=== PATIENT | female | born 1995 | race Caucasian/White ===

== ENCOUNTER 2020-01-20 12:26 | Inpatient (IN) | payer BC ==
[2020-01-20] MEDS ORDERED: diphenhydrAMINE 50 MG/ML SDV IVPUSH PRN (13:29)
[2020-01-20] MEDS ORDERED: ePHEDrine 50 MG/ML SDV IVPUSH PRN (13:29)
[2020-01-20] MEDS ORDERED: Bupivacaine/fentaNYL/NS 100 ML Bag EPIDUR PRN (13:29)
[2020-01-20] MEDS ORDERED: fentaNYL 100 MCG/2 ML SDV EPIDUR PRN (13:29)
[2020-01-20] MEDS ORDERED: Sodium Chloride 0.9% 10 ML Syringe FLUSH PRN (13:53)
[2020-01-20] MEDS ORDERED: Oxytocin/Lactated Ringers 10 UNIT/1,000 ML BAG IV SCH (14:00)
[2020-01-20] MEDS: Lactated Ringers 1,000 ML IV SCH (14:14)
[2020-01-20] MEDS ORDERED: Oxytocin/Lactated Ringers 20 UNIT/1,000 ML BAG IV SCH ×2 (16:45→22:00)
[2020-01-21] MEDS ORDERED: Metoclopramide 10 MG/2 ML SDV ONE (07:18)
[2020-01-21] MEDS ORDERED: Citric Acid/Sodium Citrate Solution 30 ML Cup ONE (07:18)
--- NOTE | 2020-01-21 07:26 | PCM.SN.2 ---
- Free Text/Narrative Note: Isidra is presently on Pitocin at 24 mU/m. She has had an adequate contraction pattern for approximately the last 8-10 hours. With this patient is not made any significant progress as far as her cervix is concerned. heart tones are reassuring. Cervix presently is 1 cm, 80% effaced, soft, posterior, presenting part is at a -3 station and is cephalic discussion is held with patient as to options of continued Pitocin therapy. She is aware that Cytotec is not an option and is aware that mechanical cervical dilation with Rascon bulb is not possible at this time yet. She is also given the option of repeat section. Procedure, risks, benefits, follow-up are discussed in detail patient on several occasions during the course of and again at this time. She is aware of this and is already signed a consent. She has opted for the section at this point. She'll be prepped for section and this will be undertaken. Pitocin will be discontinued. Routine preoperative preparations will be undertaken such as Reglan therapy and Bicitra therapy. Ancef 2 g IV preop. Test dose will be given prior to full dose. SCDs will be in place. Labs have already been done.
[2020-01-21] MEDS ORDERED: Metoclopramide 10 MG/2 ML SDV IVPUSH ONE (07:33)
[2020-01-21] MEDS ORDERED: Citric Acid/Sodium Citrate Solution 30 ML Cup PO ONE (07:33)
[2020-01-21] MEDS ORDERED: ceFAZolin 2 GM in Premix Bag 1 BAG IV ONE (07:33)
[2020-01-21] MEDS: Lactated Ringers 1,000 ML IV SCH (07:43)
--- NOTE | 2020-01-21 08:15 | PCM.PREANE ---
Preanesthetic Assessment - Procedure Proposed Procedure: Section - Anesthesia/Transfusion/Family Hx Anesthesia History: Prior Anesthesia Without Reaction Family History of Anesthesia Reaction: No Transfusion History: No Prior Transfusion(s) - Review of Systems General: No Symptoms Pulmonary: No Symptoms Cardiovascular: Other (Gestational hypertension) Gastrointestinal: No Symptoms Neurological: No Symptoms Other: Reports: None - Physical Assessment NPO Status Date: 01/20/20 NPO Status Time: 23:00 Vital Signs: Last Vital Signs Temp 37.2 C 01/20/20 12:45 Pulse 116 H 01/20/20 12:45 Resp BP 132/89 01/20/20 12:45 Pulse Ox Height: 1.63 m Weight: 72.121 kg ASA Class: 2 Mental Status: Alert & Oriented x3 Airway Class: Mallampati = 1 Dentition: Reports: Normal Dentition Thyro-Mental Finger Breadths: 3 Mouth Opening Finger Breadths: 3 ROM/Head Extension: Full Lungs: Clear to Auscultation, Normal Respiratory Effort Cardiovascular: Regular Rate, Regular Rhythm - Lab Values: Laboratory Last Values Blood Type O POSITIVE 01/20/20 11:40 Gel Antibody Screen Negative 01/20/20 11:40 - Allergies Allergies/Adverse Reactions: Allergies Allergy/AdvReac Type Severity Reaction Status Date / Time amoxicillin Allergy Hives Verified 01/20/20 12:46 - Anesthesia Plan Pre-Op Medication Ordered: Antacids - Acknowledgements Anesthesia Type Planned: Spinal Pt an Appropriate Candidate for the Planned Anesthesia: Yes Alternatives and Risks of Anesthesia Discussed w Pt/Guardian: Yes Pt/Guardian Understands and Agrees with Anesthesia Plan: Yes PreAnesthesia Questionnaire - Past Health History Medical/Surgical History: Denies Medical/Surgical History - SUBSTANCE USE Smoking Status *Q: Never Smoker Second Hand Smoke Exposure: No Recreational Drug Use History: No - CURRENT (IN HOUSE) MEDS Current Meds: Current Medications Diphenhydramine HCl (Benadryl) 25 mg IVPUSH Q6H PRN PRN Reason: Itching Ephedrine Sulfate (Ephedrine Sulfate) 5 mg IVPUSH ASDIRECTED PRN PRN Reason: HYPOTENTSION Fentanyl (Sublimaze) 100 mcg EPIDUR Q3H PRN PRN Reason: Pain Fentanyl/Bupivacaine HCl (Fentanyl/Bupivacaine/Ns 2 Mcg-0.125% 100 Ml) 100 ml EPIDUR CONTINUOUS PRN PRN Reason: Pain Lactated Ringer's (Ringers, Lactated) 1,000 mls @ 40 mls/hr IV ASDIRECTED BASSAM Last Admin: 01/21/20 07:43 Dose: 125 mls/hr Oxytocin/Lactated Ringer's (Pitocin In Lr 20 Units/1,000 Ml) 20 unit in 1,000 mls @ 999 mls/hr IV ASDIRECTED BASSAM; Protocol Oxytocin/Lactated Ringer's (Pitocin In Lr 20 Units/1,000 Ml) 20 unit in 1,000 mls @ 66 mls/hr IV TITRATE BASSAM; Protocol Last Admin: 01/20/20 21:56 Dose: 66 mls/hr Sodium Chloride (Saline Flush) 10 ml FLUSH ASDIRECTED PRN PRN Reason: Keep Vein Open Discontinued Medications Citric Acid/Sodium Citrate (Bicitra Solution) Confirm Administered Dose 30 ml .ROUTE .STK-MED ONE Stop: 01/21/20 07:19 Last Admin: 01/21/20 07:43 Dose: 30 ml Citric Acid/Sodium Citrate (Bicitra Solution) 30 ml PO ONETIME ONE Stop: 01/21/20 07:34 Last Admin: 01/21/20 08:00 Dose: Not Given Oxytocin/Lactated Ringer's (Pitocin In Lr 10 Units/1,000 Ml) 10 unit in 1,000 mls @ 12 mls/hr IV TITRATE BASSAM; Protocol Last Titration: 01/21/20 03:59 Dose: Infused Cefazolin Sodium/Dextrose 2 gm (/ Premix) 50 mls @ 100 mls/hr IV ONETIME ONE Stop: 01/21/20 08:02 Metoclopramide HCl (Reglan) Confirm Administered Dose 10 mg .ROUTE .STK-MED ONE Stop: 01/21/20 07:19 Last Admin: 01/21/20 07:43 Dose: 10 mg Metoclopramide HCl (Reglan) 10 mg IVPUSH ONETIME ONE Stop: 01/21/20 07:34 Last Admin: 01/21/20 08:00 Dose: Not Given
[2020-01-21] MEDS ORDERED: Oxytocin 10 Units/1 ML SDV ONE (08:32)
[2020-01-21] MEDS ORDERED: Lactated Ringers 2,000 ML ONE (08:32)
[2020-01-21] MEDS ORDERED: Morphine PF 1 MG/ML Amp ONE (08:32)
[2020-01-21] MEDS ORDERED: Ketorolac 30 MG/ML SDV ONE (08:32)
[2020-01-21] MEDS ORDERED: Ondansetron 4 MG/2 ML SDV ONE (08:32)
[2020-01-21] MEDS ORDERED: ceFAZolin 1 GM Vial ONE (08:32)
[2020-01-21] MEDS ORDERED: Bupivacaine 0.5% 30 ML SDV ONE (08:36)
--- NOTE | 2020-01-21 10:10 | PCM.POSTAN ---
POST ANESTHESIA ASSESSMENT - MENTAL STATUS Mental Status: Alert, Oriented - VITAL SIGNS Vital Signs: Last Vital Signs Temp 36.8 C 01/21/20 09:45 Pulse 116 H 01/20/20 12:45 Resp 13 01/21/20 10:00 BP 107/60 01/21/20 10:00 Pulse Ox 99 01/21/20 10:00 - RESPIRATORY Respiratory Status: Respiratory Rate WNL, Airway Patent, O2 Saturation Stable - CARDIOVASCULAR CV Status: Pulse Rate WNL, Blood Pressure Stable - GASTROINTESTINAL GI Status: No Symptoms - PAIN Pain Score: 0 - POST OP HYDRATION Hydration Status: Adequate & Stable
[2020-01-21] MEDS ORDERED: Ondansetron 4 MG/2 ML SDV IV PRN (10:51)
[2020-01-21] MEDS ORDERED: Dextrose 5%-Lactated Ringers 1,000 ML IV SCH (10:51)
[2020-01-21] MEDS ORDERED: Naloxone 0.4 MG/ML SDV IVPUSH PRN (10:51)
[2020-01-21] MEDS ORDERED: Acetaminophen/oxyCODONE 325-5 MG Tab PO PRN (10:51)
[2020-01-21] MEDS ORDERED: diphenhydrAMINE 50 MG/ML SDV IVPUSH PRN (10:51)
[2020-01-21] MEDS ORDERED: ePHEDrine 50 MG/ML SDV IVPUSH PRN (10:51)
[2020-01-21] MEDS: Simethicone 80 MG Tab.Chew PO SCH ×3 (14:02→23:19)
[2020-01-21] MEDS: Ibuprofen 800 MG Tab PO SCH ×2 (14:59→23:19)
--- NOTE | 2020-01-22 07:17 | PCM.SN.2 ---
- Free Text/Narrative Note: Doing well, no complaints, ambulating in room, no heavy vaginal bleeding.
[2020-01-22] MEDS: Ibuprofen 800 MG Tab PO SCH ×2 (07:28→16:20)
[2020-01-22] MEDS: Docusate Sodium 100 MG Cap PO PRN (10:09)
[2020-01-22] MEDS: Acetaminophen/oxyCODONE 325-5 MG Tab PO PRN ×2 (10:10→18:19)
[2020-01-22] MEDS: Simethicone 80 MG Tab.Chew PO SCH ×4 (10:11→22:50)
[2020-01-23] MEDS: Ibuprofen 800 MG Tab PO SCH ×2 (00:05→07:02)
[2020-01-23] MEDS: Acetaminophen/oxyCODONE 325-5 MG Tab PO PRN (00:06)
[2020-01-23] MEDS: Docusate Sodium 100 MG Cap PO PRN (00:06)
[2020-01-23] MEDS: Simethicone 80 MG Tab.Chew PO SCH (10:01)
--- NOTE | 2020-01-23 10:33 | PCM.DCSUM1 ---
Discharge Summary - Hospital Course Free Text/Narrative:: section Friday01/21/2020 HPI Initial Comments: section Friday01/21/2020 Brief History: section Friday01/21/2020 Diagnosis: Stroke: No - Discharge Data Discharge Date: 01/23/20 Discharge Disposition: Home, Self-Care 01 Condition: Good - Referral to Home Health Primary Care Physician: Car Silveira MD - Discharge Diagnosis/Problem(s) (1) 40 weeks gestation of SNOMED Code(s): 68271345 ICD Code: Z3A.40 - 40 WEEKS GESTATION OF Status: Acute Current Visit: Yes (2) Gestational [-induced] hypertension without significant proteinuria , third trimester SNOMED Code(s): 926605102, 538829960 ICD Code: O13.3 - GESTATIONAL HTN W/O SIGNIFICANT PROTEINURIA, THIRD TRIMESTER Status: Acute Current Visit: Yes (3) H/O section SNOMED Code(s): 788204321 ICD Code: Z98.891 - HISTORY OF UTERINE SCAR FROM PREVIOUS SURGERY Status: Acute Current Visit: Yes (4) Previous delivery affecting , delivered SNOMED Code(s): 669568326, 781791933 ICD Code: O34.219 - MATERNAL CARE FOR UNSP TYPE SCAR FROM PREVIOUS DEL Status: Acute Current Visit: Yes - Patient Summary/Data Complications: none Consults: none Hospital Course: uneventful - Patient Instructions Diet: Usual Diet as Tolerated Driving: Do Not Drive (x2 weeks) Showering/Bathing: May Shower, No Tub Bathing/Swimming (x6 weeks) Wound/Incision Care: Keep Operative Site/Wound Site Clean and Dry Notify Provider of: Fever, Increased Pain, Swelling and Redness, Drainage, Nausea and/or Vomiting - Discharge Plan *PRESCRIPTION DRUG MONITORING PROGRAM REVIEWED*: Not Applicable *COPY OF PRESCRIPTION DRUG MONITORING REPORT IN PATIENT MEY: Not Applicable Home Medications: Home Meds Docusate Sodium [Colace] 100 mg PO Q12H PRN cap 01/23/20 [Rx] Ibuprofen [Motrin] 600 mg PO Q6H tablet 01/23/20 [Rx] Simethicone 80 mg PO PCBED tab.chew 01/23/20 [Rx] Referrals: Car Silveira MD [Primary Care Provider] - (patient to call Friday for appointment in 2 weeks) - Discharge Summary/Plan Comment DC Time >30 min.: No - Patient Data Vitals - Most Recent: Last Vital Signs Temp 98.2 F 01/23/20 08:47 Pulse 70 01/23/20 08:47 Resp 16 01/23/20 08:47 BP 127/81 01/23/20 08:47 Pulse Ox 99 01/23/20 08:47 Weight - Most Recent: 159 lb I&O - Last 24 hours: Intake & Output 01/22/20 01/23/20 01/23/20 22:59 06:59 14:59 Intake Total 380 Balance 380 Med Orders - Current: Current Medications Diphenhydramine HCl (Benadryl) 25 mg IVPUSH Q6H PRN PRN Reason: Itching or Nausea Docusate Sodium (Colace) 100 mg PO Q12H PRN PRN Reason: Constipation Last Admin: 01/23/20 00:06 Dose: 100 mg Ephedrine Sulfate (Ephedrine Sulfate) 5 mg IVPUSH SEECOMMENT PRN PRN Reason: Other Ibuprofen (Motrin) 800 mg PO Q8H [facility] Last Admin: 01/23/20 07:02 Dose: 800 mg Naloxone HCl (Narcan) 0.1 mg IVPUSH SEECOMMENT PRN PRN Reason: Respiratory Depression Ondansetron HCl (Zofran) 4 mg IV Q4H PRN PRN Reason: Nausea/Vomiting Oxycodone/Acetaminophen (Percocet 325-5 Mg) 1 tab PO Q4H PRN PRN Reason: Pain (moderate 4-6) Last Admin: 01/23/20 00:06 Dose: 1 tab Oxycodone/Acetaminophen (Percocet 325-5 Mg) 2 tab PO Q4H PRN PRN Reason: Pain (severe 7-10) [facility]icone [facility]one) [facility] Last Admin: 01/23/20 10:01 Dose: Not Given Discontinued Medications Bupivacaine HCl (Marcaine 0.5%) Confirm Administered Dose 30 ml .ROUTE .STK-MED ONE Stop: 01/21/20 08:37 Last Admin: 01/21/20 09:09 Dose: 20 ml Cefazolin Sodium (Ancef) Confirm Administered Dose 2 gm .ROUTE .STK-MED ONE Stop: 01/21/20 08:33 Citric Acid/Sodium Citrate (Bicitra Solution) Confirm Administered Dose 30 ml .ROUTE .STK-MED ONE Stop: 01/21/20 07:19 Last Admin: 01/21/20 07:43 Dose: 30 ml Citric Acid/Sodium Citrate (Bicitra Solution) 30 ml PO ONETIME ONE Stop: 01/21/20 07:34 Last Admin: 01/21/20 08:00 Dose: Not Given Diphenhydramine HCl (Benadryl) 25 mg IVPUSH Q6H PRN PRN Reason: Itching Ephedrine Sulfate (Ephedrine Sulfate) 5 mg IVPUSH ASDIRECTED PRN PRN Reason: HYPOTENTSION Fentanyl (Sublimaze) 100 mcg EPIDUR Q3H PRN PRN Reason: Pain Fentanyl/Bupivacaine HCl (Fentanyl/Bupivacaine/Ns 2 Mcg-0.125% 100 Ml) 100 ml EPIDUR CONTINUOUS PRN PRN Reason: Pain Glycopyrrolate () Confirm Administered Dose 1 mg .ROUTE .STKapost-MED ONE Stop: 01/21/20 09:34 Lactated Ringer's (Ringers, Lactated) 1,000 mls @ 40 mls/hr IV ASDIRECTED BASSAM Last Admin: 01/21/20 07:43 Dose: 125 mls/hr Oxytocin/Lactated Ringer's (Pitocin In Lr 10 Units/1,000 Ml) 10 unit in 1,000 mls @ 12 mls/hr IV TITRATE BASSAM; Protocol Last Titration: 01/21/20 03:59 Dose: Infused Oxytocin/Lactated Ringer's (Pitocin In Lr 20 Units/1,000 Ml) 20 unit in 1,000 mls @ 999 mls/hr IV ASDIRECTED BASSAM; Protocol Oxytocin/Lactated Ringer's (Pitocin In Lr 20 Units/1,000 Ml) 20 unit in 1,000 mls @ 66 mls/hr IV TITRATE BASSAM; Protocol Last Admin: 01/20/20 21:56 Dose: 66 mls/hr Cefazolin Sodium/Dextrose 2 gm (/ Premix) 50 mls @ 100 mls/hr IV ONETIME ONE Stop: 01/21/20 08:02 Lactated Ringer's (Ringers, Lactated) Confirm Administered Dose 2,000 mls @ as directed .ROUTE .STK-MED ONE Stop: 01/21/20 08:33 Dextrose/Lactated Ringer's (Dextrose 5%-Lactated Ringers) 1,000 mls @ 125 mls/ hr IV ASDIRECTED BASSAM Stop: 01/21/20 18:50 Last Admin: 01/21/20 14:04 Dose: 125 mls/hr Ketorolac Tromethamine (Toradol) Confirm Administered Dose 30 mg .ROUTE .STK- MED ONE Stop: 01/21/20 08:33 Metoclopramide HCl (Reglan) Confirm Administered Dose 10 mg .ROUTE .STK-MED ONE Stop: 01/21/20 07:19 Last Admin: 01/21/20 07:43 Dose: 10 mg Metoclopramide HCl (Reglan) 10 mg IVPUSH ONETIME ONE Stop: 01/21/20 07:34 Last Admin: 01/21/20 08:00 Dose: Not Given Morphine Sulfate (Duramorph Pf) Confirm Administered Dose 1 mg .ROUTE .STK-MED ONE Stop: 01/21/20 08:33 Ondansetron HCl (Zofran) Confirm Administered Dose 4 mg .ROUTE .STK-MED ONE Stop: 01/21/20 08:33 Oxytocin (Pitocin) Confirm Administered Dose 20 unit .ROUTE .STK-MED ONE Stop: 01/21/20 08:33 Sodium Chloride (Saline Flush) 10 ml FLUSH ASDIRECTED PRN PRN Reason: Keep Vein Open
--- NOTE | 2020-01-23 17:50 | PCM48HPAN ---
Post Anesthesia Note - EVALUATION WITHIN 48HRS OF ANESTHETIC Vital Signs in Normal Range: Yes Patient Participated in Evaluation: Yes Respiratory Function Stable: Yes Airway Patent: Yes Cardiovascular Function Stable: Yes Hydration Status Stable: Yes Pain Control Satisfactory: Yes Nausea and Vomiting Control Satisfactory: Yes Mental Status Recovered: Yes Vital Signs: Last Vital Signs Temp 36.8 C 01/23/20 08:47 Pulse 70 01/23/20 08:47 Resp 16 01/23/20 08:47 BP 127/81 01/23/20 08:47 Pulse Ox 99 01/23/20 08:47
--- NOTE | 2020-01-24 23:39 | PCM.OPNOTE ---
- General Post-Op/Procedure Note Date of Surgery/Procedure: 01/21/20 Operative Procedure(s): Repeat lower uterine segment transverse section through a Pfannenstiel skin incision under a spinal block Findings: The baby was found to be in a vertex presentation. Weight 9 lbs. 7 oz. Baby's head was not engaged in the pelvis whatsoever. Amniotic fluid was clear. Uterus tubes and ovaries were consistent with normal term . Lower uterine segment was thin at no more than 1 mm thick at the area of the old uterine scar. Pre Op Diagnosis: 39 week , failure to progress after attempt at trial of labor after section for vaginal at section. Post-Op Diagnosis: Same with macrosomic infant Anesthesia Technique: Spinal Other Anesthesia Type: Marcaine 0.5%20 mL local Primary Surgeon: Car Silveira Secondary Surgeon: Erik Means Anesthesia Provider: Edison Berrios Reason Extension Service Agent Was Necessary: Retraction, assistance, patient safety, quality of care. Fluid Replacement, Intraop: 2,500 EBL in mLs: 250 Drain/Tube Comments:: Indwelling bladder catheter Complications: None Condition: Good Free Text/Narrative:: Surgery duration: approximately 25 minutes Surgery duration: Procedure: The patient is appropriately consented. Patient was transferred to the room and placed in a sitting position. Spinal anesthesia was administered. After confirmation of adequate anesthesia patient was placed in a supine position with a wedge under her right side to facilitate left lateral positioning. The patient was prepped and draped in usual fashion after Rascon catheter was already placed . The anesthetic was checked and found to be adequate. 20 mL of Marcaine 0.5% was injected locally in the Pfannenstiel incision site. The Pfannenstiel skin incision was then made and carried down through skin, subcutaneous and fascial layers. The fascia was then undermined superiorly and inferiorly to allow for adequate operating room. The recti muscles midline and preperitoneal fat was bluntly dissected. Peritoneal cavity was entered longitudinally. The vesicouterine peritoneum was then incised transversely and bladder flap was developed. Myometrium was incised transversely to the level of the amniotic sac. This incision was extended bilaterally in a blunt fashion. The amniotic sac was then ruptured resulting in clear amniotic fluid. A hand is placed in the low uterine segment and the baby's head was brought forth through the incision. The baby was completely delivered using fundal pressure in a routine fashion. The nose and mouth were bulb suctioned. Baby's cord was clamped x2 cut and baby was handed off to attending senior communications specialist Dr Thakkar. Placenta was expressed after cord blood was obtained. Uterus was then exteriorized to allow for easier closure. The cervix was assessed and found to be dilated adequately to allow egress of blood. The uterus was closed in 2 layers. The first layer a running locked suture of 0 Monocryl, the second layer a running locked vertical mattress suture of 0 Monocryl. [id number] suture was placed at mid incision to control 1 bleeder. Hemostasis confirmed at this time. Sponge instrument needle counts are correct. The uterus was returned to the abdominal cavity and lateral gutters were cleared of blood. Once again sponge needle counts are correct. The anterior abdominal wall was closed with a #1 PDS suture from angle to angle. The subcutaneous area was found to be free of any bleeders. Skin was closed with a running subcuticular stitch of 3-0 Monocryl in a vertical mattress suture fashion using a Salvador needle. Prineo mesh/glue was then applied to further approximate the incision. It should be noted that patient received 2 g of Ancef preoperatively for infection prophylaxis and had Pitocin infused after delivery of the placenta to facilitate uterine contraction. She also had sequential compression stockings in place for DVT prophylaxis. Patient was discharged from the operating room in satisfactory condition.
== END 2020-01-23 11:00 | disposition home or self-care (01) | DRG 540 ==
LOC: JD.OBCHECK 12:26 → JD.OB 12:30 → JD.OBCHECK 13:52 → JD.OB 13:53 → OBSVTOIN 01-21 09:13 → JD.OB 01-21 09:14 → OBSVTOIN 01-21 09:23 → INTOOBSV 01-21 09:23
PROVIDERS: ADMIT Obstetrics & Gynecology; ATTEND Obstetrics & Gynecology
PROC: 10D00Z1 Extraction of Products of Conception, Low, Open Approach (ICD-10-PCS; principal; 2020-01-21)
PROC: 3E033VJ Introduction of Other Hormone into Peripheral Vein, Percutaneous Approach (ICD-10-PCS; 2020-01-21)
PROC: 3E0R3BZ Introduction of Anesthetic Agent into Spinal Canal, Percutaneous Approach (ICD-10-PCS; 2020-01-21)
DX: O13.4 Gestational [pregnancy-induced] hypertension without significant proteinuria, complicating childbirth (principal); Z3A.40 40 weeks gestation of pregnancy; Z37.0 Single live birth; O34.211 Maternal care for low transverse scar from previous cesarean delivery; Z88.0 Allergy status to penicillin
CPT/HCPCS: 01961; 36415; 59025; 85025; 86850; 86900; 86901; 94762; A9270-GY; J0690; J1885; J2274; J2405; J2590; J2765; J3490; J7120; J7121